=== PATIENT | male | born 1950 | race Two or more races ===

== ENCOUNTER 2017-07-12 23:33 | Emergency (ER) | payer OTHER ==
[~2017-07-12] VITALS: Ht 172.7 cm; Wt 81.2 kg
[2017-07-12] MEDS ORDERED: cloNIDine HCL 0.1 MG TAB ONE (23:57)
[2017-07-13] MEDS ORDERED: cloNIDine HCL 0.1 MG TAB PO ONE (00:15)
[2017-07-13 00:21] LABS: Basophils # (auto) 0 uL; Basophils % (auto) 0.4 % (0.0-2.0); Eosinophils # (auto) 0.1 uL; Eosinophils % (auto) 0.6 % (0.0-7.0); Hematocrit 42.1 % (41.0-53.0); Lymphocytes # (auto) 1.6 uL; Lymphocytes % (auto) 19.3 % (10.0-50.0); Mean Corpuscular Hemoglobin 30.6 pg (28.0-32.0); Mean Corpuscular Hgb Conc. 33.3 g/dL (32.0-36.0); Mean Corpuscular Volume 91.9 fL (80.0-100.0); Monocytes # (auto) 0.8 uL; Neutrophils % (auto) 70.7 % (37.0-80.0); Nucleated Red Blood Cells % 0.1 %; Platelet Count (auto) 200 10^3/uL (140-450); Red Blood Cells 4.58 10^6/uL (4.5-5.90); Red Cell Distribution Width 12.8 % (11.8-14.3); White Blood Cell 8.5 10^3/uL (4.4-10.8)
[2017-07-13 00:39] LABS: Anion Gap 7 (5-15); Aspartate Aminotransferase 19 U/L (15-37); Blood Urea Nitrogen 19 mg/dL (7-18); Calcium 9.1 mg/dL (8.5-10.1); Carbon Dioxide 25 mmol/L (21-32); Chloride 112 mmol/L (98-107); GFR African American 102 mL/min; GFR Non-African American 84 mL/min; Glucose 140 mg/dL (74-106); Magnesium 2.2 mg/dL (1.6-2.6); Potassium 3.4 mmol/L (3.5-5.1); Sodium 144 mmol/L (136-145)
[2017-07-13 00:42] LABS: Alanine Aminotransferase 25 U/L (16-61); Alkaline Phosphatase 100 U/L (45-117); Bilirubin, Total 0.3 mg/dL (0.2-1.0); Total Protein 7.4 g/dL (6.4-8.2)
[2017-07-13] MEDS ORDERED: ASPirin 81 mg TAB PO ONE (07:15)
[2017-07-13] MEDS ORDERED: NITROGLYCERIN 0.4 MG SL TAB SL ONE ×2 (07:15→07:45)
[2017-07-13] MEDS ORDERED: POTASSIUM CHL 10% (20 MEQ/15ML) 15ml ORAL SOLN PO ONE (07:45)
[2017-07-13 09:24] VITALS: BP 139/97
[2017-07-13 09:40] LABS: Urine Bacteria NONE SEEN /hpf (None Seen); Urine Blood Negative /uL (Negative); Urine Specific Gravity 1.022 (1.001-1.035); Urine WBC <1 /hpf (0 - 3)
== END 2017-07-13 10:35 | disposition home or self-care (01) ==
LOC: ER 23:41
DX: F41.9 Anxiety disorder, unspecified (principal); E87.6 Hypokalemia; E11.9 Type 2 diabetes mellitus without complications; I10 Essential (primary) hypertension
CPT/HCPCS: 36415; 71045; 80053; 81001; 82962; 83735; 83880; 84484; 85025; 93005

== ENCOUNTER 2023-03-03 19:05 | Emergency (ER) | payer OTHER, MEDICAID ==
[~2023-03-03] VITALS: Ht 167.6 cm; Wt 74.3 kg
[2023-03-03 19:26] VITALS: BP 154/79; PULSE 80; RESP 16; TEMP 98.5; O2SAT 97
[2023-03-03] MEDS ORDERED: TRAM50TA2 PO (22:47)
[2023-03-03] MEDS ORDERED: predniSONE 20 MG TAB PO ONE (23:00)
[2023-03-03] MEDS ORDERED: HYDROcodone-ACET 5/325MG TAB PO ONE (23:00)
== END 2023-03-03 23:44 | disposition home or self-care (01) ==
LOC: ER 19:05
DX: M51.36 Other intervertebral disc degeneration, lumbar region (principal); M25.561 Pain in right knee; M79.604 Pain in right leg; M17.11 Unilateral primary osteoarthritis, right knee; M22.41 Chondromalacia patellae, right knee; I10 Essential (primary) hypertension; E11.9 Type 2 diabetes mellitus without complications; Z79.899 Other long term (current) drug therapy
CPT/HCPCS: 72131; 73700; 93971; 99284; J7512